=== PATIENT | female | born 1975 | race Two or more races ===

== ENCOUNTER 2019-01-25 08:44 | Emergency (ER) | payer MEDICAID, OTHER ==
[~2019-01-25] VITALS: Ht 162.6 cm; Wt 90.7 kg
[2019-01-25 09:20] VITALS: BP 121/85
[2019-01-25] MEDS ORDERED: IBUPROFEN 800 MG TAB PO ONE (09:30)
== END 2019-01-25 10:02 | disposition home or self-care (01) ==
LOC: EDBD 08:44 → ER 08:51
DX: S29.011A Strain of muscle and tendon of front wall of thorax, initial encounter (principal); S16.1XXA Strain of muscle, fascia and tendon at neck level, initial encounter; V49.9XXA Car occupant (driver) (passenger) injured in unspecified traffic accident, initial encounter; Y93.89 Activity, other specified; Y92.410 Unspecified street and highway as the place of occurrence of the external cause; Y99.8 Other external cause status
CPT/HCPCS: 71046